=== PATIENT | female | born 1980 | race Caucasian/White ===

== ENCOUNTER → 2017-05-24 17:06 | Outpatient (CLI) | payer BC | END | disposition home or self-care (01) | LOC: D.MAMMO 14:00 | DX: Z12.31 Encounter for screening mammogram for malignant neoplasm of breast (principal) ==

== ENCOUNTER 2018-08-11 03:44 | Emergency (ER) | payer MEDICAID ==
[~2018-08-11] VITALS: Ht 162.6 cm; Wt 77.3 kg
[2018-08-11 03:48] VITALS: Ht 162.6 cm; Wt 77.3 kg
[2018-08-11] MEDS ORDERED: BUPROPION HCL150 M1 PO (03:50)
[2018-08-11 04:31] LABS: BASOPHILS 0.2 % (0-2); EOSINOPHILS 2.9 % (0-7); HEMATOCRIT 36.8 % (36.0-48.0); HEMOGLOBIN 12.1 g/dL (12-16); IMMATURE GRANULOCYTES 0.3 % (0-5); LYMPHOCYTES 15.6 % (15-50); MCH 27.2 pg (26.0-34.0); MCHC 32.9 g/dL (31.0-37.0); MCV 82.7 fL (80.0-100.0); MEAN PLATELET VOLUME 9.3 fL (7.4-10.4); MONOCYTES 8.6 % (2-11); NEUTROPHILS 72.4 % (40-80); PLATELET COUNT 367 10x3/uL (130-400); RBC 4.45 10x6/uL (4.00-5.40); RDW 15.1 % (11.5-14.5); WBC 12.8 10x3/uL (4.8-10.8)
[2018-08-11 04:43] LABS: APPEARANCE CLEAR (CLEAR); BILIRUBIN NEGATIVE (NEGATIVE); COLOR YELLOW (YELLOW); GLUCOSE NEGATIVE (NEGATIVE); KETONE NEGATIVE (NEGATIVE); NITRITE NEGATIVE (NEGATIVE); PROTEIN NEGATIVE (NEGATIVE); RED CELLS - URINE 0-5 /hpf (0-5); UROBILINOGEN NORMAL (NORMAL)
[2018-08-11 04:43] LABS: HCG SERUM NEGATIVE (NEGATIVE)
[2018-08-11 04:56] LABS: ALBUMIN 3.5 g/dL (3.4-5.0); ANION GAP 14.4 mmol/L (8-16); BILIRUBIN - TOTAL 0.19 mg/dL (0.2-1.3); CALCIUM 8.8 mg/dL (8.5-10.1); CREATININE - SERUM 0.9 mg/dL (0.6-1.3); POTASSIUM - SERUM 4.4 mmol/L (3.5-5.1); PROTEIN - SERUM 7.3 g/dL (6.4-8.2)
[2018-08-11] MEDS ORDERED: NAPROSYN500 MG PO (06:26)
[2018-08-11] MEDS ORDERED: ZOFRAN4 MG PO (06:26)
[2018-08-11 06:36] VITALS: BP 122/84
== END 2018-08-11 06:37 | disposition home or self-care (01) ==
LOC: D.ER 03:44
PROVIDERS: Family Medicine
DX: M54.5 Low back pain (principal); K52.9 Noninfective gastroenteritis and colitis, unspecified; F17.200 Nicotine dependence, unspecified, uncomplicated

== ENCOUNTER 2019-12-25 21:38 | Emergency (ER) | payer MEDICAID ==
[~2019-12-25] VITALS: Ht 162.6 cm; Wt 77.3 kg
[~2019-12-25 21:38] MED LIST: BUPROPION HCL150 M1 PO; NAPROSYN500 MG PO; ZOFRAN4 MG PO
[2019-12-25 21:45] VITALS: Ht 162.6 cm; Wt 77.3 kg
[2019-12-25 21:59] LABS: BASOPHILS 0.2 % (0-2); EOSINOPHILS 3.4 % (0-7); HEMATOCRIT 39.1 % (36.0-48.0); HEMOGLOBIN 12.8 g/dL (12-16); IMMATURE GRANULOCYTES 0.5 % (0-5); LYMPHOCYTES 25.5 % (15-50); MCH 27.4 pg (26.0-34.0); MCHC 32.7 g/dL (31.0-37.0); MCV 83.7 fL (80.0-100.0); MEAN PLATELET VOLUME 9.1 fL (7.4-10.4); MONOCYTES 8.2 % (2-11); NEUTROPHILS 62.2 % (40-80); PLATELET COUNT 450 10x3/uL (130-400); RBC 4.67 10x6/uL (4.00-5.40); WBC 12.1 10x3/uL (4.8-10.8)
[2019-12-25 22:09] LABS: APTT 23.7 SECONDS (22.8-39.4); CALC OSMOLALITY 277 mosm/kg (275-300); CALCIUM 9.1 mg/dL (8.5-10.1); CARBON DIOXIDE 24.9 mmol/L (21.0-32.0); CHLORIDE - SERUM 104 mmol/L (98-107); GLUCOSE 92 mg/dL (74-106); INR 0.9 (0.85-1.17); POTASSIUM - SERUM 3.5 mmol/L (3.5-5.1); PROTIME 12.1 SECONDS (11.6-15.0); SODIUM 140 mmol/L (136-145); UREA NITROGEN 9 mg/dL (7-18); eGFR NON AFRICAN AMERICAN 65 mL/min (90-120)
[2019-12-25 22:26] LABS: ALBUMIN 3.4 g/dL (3.4-5.0); ALKALINE PHOSPHATASE 115 U/L (30-120); ALT (SGPT) 41 U/L (10-68); BILIRUBIN - TOTAL 0.23 mg/dL (0.2-1.3); CKMB 0.6 U/L (0.0-3.6); CREATINE KINASE 76 UL (21-215); MAGNESIUM - SERUM 1.7 mg/dL (1.8-2.4); PROTEIN - SERUM 7.8 g/dL (6.4-8.2)
[2019-12-25 22:27] LABS: TROPONIN-I < 0.017 ng/mL (0.000-0.060)
--- NOTE | 2019-12-26 00:16 | NUR ---
PATIENT IS IN ER FOR SHORTNESS OF BREATH, THIS PATIENT DENIES BEING SUICIDIAL AT THIS TIME. SHE BELIEVES THAT TAKING YOUR OWN LIFE IS HIGHTLY IMMORAL AND SHE DOESN'T WANT TO EVER LEAVE HER KIDS. [phone] GIVEN TO PATIENT FOR FUTURE REFERENCE.
[2019-12-26 00:21] VITALS: BP 128/80
== END 2019-12-26 00:21 | disposition home or self-care (01) ==
LOC: D.ER 21:38
PROVIDERS: Family Medicine
DX: F41.9 Anxiety disorder, unspecified (principal); R07.9 Chest pain, unspecified

== ENCOUNTER 2020-07-04 21:48 | Emergency (ER) | payer MEDICAID ==
[~2020-07-04] VITALS: Ht 162.6 cm; Wt 77.3 kg
[2020-07-04 21:53] VITALS: Ht 162.6 cm; Wt 77.3 kg
[2020-07-04] MEDS ORDERED: VISTARIL25 MG (21:56)
[2020-07-04 22:16] LABS: BILIRUBIN NEGATIVE (NEGATIVE); KETONE NEGATIVE (NEGATIVE); NITRITE NEGATIVE (NEGATIVE); UROBILINOGEN NORMAL (NORMAL)
[2020-07-04 22:18] LABS: HCG URINE NEGATIVE (NEGATIVE)
[2020-07-04 22:40] LABS: UDS - AMPHET POSITIVE QUAL (NEGATIVE); UDS - BARB NEGATIVE QUAL (NEGATIVE); UDS - BENZO NEGATIVE QUAL (NEGATIVE); UDS - COCAINE NEGATIVE QUAL (NEGATIVE); UDS - OPIATE NEGATIVE QUAL (NEGATIVE); UDS - PCP NEGATIVE QUAL (NEGATIVE); UDS - THC NEGATIVE QUAL (NEGATIVE)
[2020-07-04 22:42] LABS: BASOPHILS 0.3 % (0-2); EOSINOPHILS 2.7 % (0-7); HEMATOCRIT 38.5 % (36.0-48.0); HEMOGLOBIN 12.4 g/dL (12-16); IMMATURE GRANULOCYTES 0.2 % (0-5); LYMPHOCYTES 25.9 % (15-50); MCH 26.4 pg (26.0-34.0); MCHC 32.2 g/dL (31.0-37.0); MCV 81.9 fL (80.0-100.0); MEAN PLATELET VOLUME 8.7 fL (7.4-10.4); MONOCYTES 7.5 % (2-11); NEUTROPHILS 63.4 % (40-80); PLATELET COUNT 526 10x3/uL (130-400); RDW 15.9 % (11.5-14.5); WBC 10.1 10x3/uL (4.8-10.8)
[2020-07-04 22:47] LABS: ANION GAP 15.3 mmol/L (8-16); CARBON DIOXIDE 25.8 mmol/L (21.0-32.0); POTASSIUM - SERUM 3.1 mmol/L (3.5-5.1)
[2020-07-04 23:00] LABS: ALBUMIN 3.8 g/dL (3.4-5.0); BILIRUBIN - TOTAL 0.24 mg/dL (0.2-1.3); C-REACTIVE PROTEIN 1.2 mg/dL (0.0-0.9)
--- NOTE | 2020-07-04 23:07 | NUR ---
DR HANSEN NOTIFIED AND REVIEWED BEHAVIOR AND ASSESSMENT RESULTS, PT IS A LOW RISK PER DR HANSEN. DR HANSEN STATED TO GIVE RESOURCES OT PT AT TIME OF DISCHARGE. NO FURTHER ORDERS AT THIS TIME. RESOURCES REVIEWED WITH PT AND SHE VERBALIZED UNDERSTANDING.
[2020-07-05 02:12] VITALS: BP 130/78
== END 2020-07-05 02:22 | disposition home or self-care (01) ==
LOC: D.ER 21:48
PROVIDERS: Family Medicine
DX: R07.89 Other chest pain (principal); R51 Headache